=== PATIENT | female | born 1955 | race African-American/Black ===

== ENCOUNTER 2022-06-06 20:23 | Emergency (ER) | payer OTHER ==
[2022-06-06 20:42] VITALS: TEMP 98.9
[2022-06-06] MEDS ORDERED: SODIUM CHLORIDE 0.9% 1,000 ML IV STA (20:45)
[2022-06-06] MEDS ORDERED: KETOROLAC 15 MG/ML 1 ML VIAL IVP STA (20:45)
[2022-06-06] MEDS ORDERED: ONDANSETRON 4 MG/2 ML VIAL IVP STA (20:45)
[2022-06-06] MEDS ORDERED: PROMETHAZINE 25 MG TAB PO STA (20:53)
[2022-06-06] MEDS ORDERED: cloNIDine HCL 0.2 MG TAB PO STA (20:54)
[2022-06-06 21:23] LABS: Basophils % (A) 1 %; Eosinophils # (A) 0.1 k/uL (0-0.7); Eosinophils % (A) 1 %; HCT 49.3 % (34.0-46.0); HGB 16.4 gm/dL (11.4-16.0); Lymphocytes # (A) 1.4 k/uL (1.0-4.8); Lymphocytes % (A) 18 %; MCH 29.6 pg (25.0-35.0); MCHC 33.3 g/dL (31.0-37.0); MCV 88.7 fL (80.0-100.0); Mean Platelet Volume 8.1; Monocytes # (A) 0.3 k/uL (0-1.0); Monocytes % (A) 4 %; Neutrophils # (A) 5.6 k/uL (1.3-7.7); Neutrophils % (A) 75 %; Platelet Count 226 k/uL (150-450); RBC 5.56 m/uL (3.80-5.40); RDW 12.3 % (11.5-15.5); WBC 7.4 k/uL (3.8-10.6)
[2022-06-06 21:33] LABS: ALT 16 U/L (4-34); AST 23 U/L (14-36); African American GFR (CKD) >90 (>60 ml/min/1.73 sqM); Albumin 5.1 g/dL (3.5-5.0); Alkaline Phosphatase 89 U/L (38-126); Anion Gap 17 mmol/L; Blood Urea Nitrogen 12 mg/dL (7-17); Calcium 9.8 mg/dL (8.4-10.2); Carbon Dioxide 25 mmol/L (22-30); Chloride 99 mmol/L (98-107); Glucose 156 mg/dL (74-99); Lipase 185 U/L (23-300); Non-African American GFR(CKD) >90 (>60 ml/min/1.73 sqM); Potassium 4.2 mmol/L (3.5-5.1); Sodium 141 mmol/L (137-145); Total Bilirubin 0.7 mg/dL (0.2-1.3); Total Protein 8.4 g/dL (6.3-8.2)
[2022-06-06] MEDS ORDERED: HYDROmorphone 0.5 MG/0.5 ML SYRINGE IVP STA (22:17)
--- NOTE | 2022-06-06 22:22 | ED ---
Abdominal Pain HPI - General Source: patient Mode of arrival: EMS Limitations: no limitations <Valerie Mendoza - Last Filed: 06/07/22 00:22> <Vickey Arciniega - Last Filed: 06/07/22 01:52> - General Chief Complaint: Abdominal Pain Stated Complaint: Abdominal Pain Time Seen by Provider: 06/06/22 20:27 - History of Present Illness Initial Comments: Patient is a 66-year-old female with a past medical history of hypertension and type 2 diabetes mellitus who presents from [facility] for withdrawal of heroin and crack cocaine. Last dose was 2 days ago. Patient reporting generalized abdominal pain, nausea, vomiting. Denies fever, chills, burning with urination. Patient was found to have elevated blood pressure at [facility], systolic in the low 200s. Patient states she took her blood pressure medications today. Denies alcohol use. (Valerie Mendoza) - Related Data Home Medications Medication Instructions Recorded Confirmed Albuterol Sulfate [Proair Hfa] 2 puff INHALATION RT-QID PRN 06/06/22 06/06/22 Insulin Glargine,Hum.rec.anlog 40 units SQ DAILY 06/06/22 06/06/22 [Lantus Solostar Pen] Simvastatin [Zocor] 20 mg PO DIRECTED 06/06/22 06/06/22 amLODIPine [Norvasc] 5 mg PO DIRECTED 06/06/22 06/06/22 carvediloL [Coreg] 6.25 mg PO DIRECTED 06/06/22 06/06/22 lisinopriL [Prinivil] 20 mg PO DAILY 06/06/22 06/06/22 metFORMIN HCL 500 mg PO BID 06/06/22 06/06/22 Previous Rx's Medication Instructions Recorded Ibuprofen [Motrin] 800 mg PO Q6HR PRN #30 tab 06/07/22 Ondansetron Odt [Zofran Odt] 4 mg PO Q8HR PRN #10 tab 06/07/22 Allergies Allergy/AdvReac Type Severity Reaction Status Date / Time No Known Allergies Allergy Verified 06/06/22 22:17 Review of Systems ROS Other: All systems not noted in ROS Statement are negative. <Valerie Mendoza - Last Filed: 06/07/22 00:22> ROS Other: All systems not noted in ROS Statement are negative. <Vickey Arciniega - Last Filed: 06/07/22 01:52> ROS Statement: Those systems with pertinent positive or pertinent negative responses have been documented in the HPI. General Exam Limitations: no limitations General appearance: alert, in distress (Pain) Respiratory exam: Present: normal lung sounds bilaterally. Absent: respiratory distress, wheezes, rales, rhonchi, stridor Cardiovascular Exam: Present: regular rate, normal rhythm, normal heart sounds. Absent: systolic murmur, diastolic murmur, rubs, gallop, clicks GI/Abdominal exam: Present: soft, normal bowel sounds. Absent: distended, tenderness, guarding, rebound, rigid Extremities exam: Present: other (no tremors) Neurological exam: Present: alert, oriented X3, CN II-XII intact Psychiatric exam: Present: normal affect, normal mood Skin exam: Present: warm, dry, intact, normal color. Absent: rash <Valerie Mendoza - Last Filed: 06/07/22 00:22> General appearance: alert, in no apparent distress Head exam: Present: atraumatic, normocephalic, normal inspection Eye exam: Present: normal appearance, PERRL, EOMI. Absent: scleral icterus, conjunctival injection, periorbital swelling ENT exam: Present: normal exam, mucous membranes moist Neck exam: Present: normal inspection. Absent: tenderness, meningismus, lymphadenopathy Respiratory exam: Present: normal lung sounds bilaterally. Absent: respiratory distress, wheezes, rales, rhonchi, stridor Cardiovascular Exam: Present: regular rate, normal rhythm, normal heart sounds. Absent: systolic murmur, diastolic murmur, rubs, gallop, clicks GI/Abdominal exam: Present: soft, normal bowel sounds. Absent: distended, tenderness, guarding, rebound, rigid Extremities exam: Present: normal inspection, full ROM, normal capillary refill. Absent: tenderness, pedal edema, joint swelling, calf tenderness Back exam: Present: normal inspection Neurological exam: Present: alert, oriented X3, CN II-XII intact Psychiatric exam: Present: normal affect, normal mood Skin exam: Present: warm, dry, intact, normal color. Absent: rash <Vickey Arciniega - Last Filed: 06/07/22 01:52> Course <Vickey Arciniega - Last Filed: 06/07/22 01:52> Vital Signs 06/06/22 06/06/22 06/07/22 20:40 23:33 00:11 Temperature 98.9 F Pulse Rate 50 L 54 L 50 L Respiratory 10 L 12 12 Rate Blood Pressure 190/79 217/85 140/65 O2 Sat by Pulse 98 95 Oximetry - Reevaluation(s) Reevaluation #1: 06/07/22 01:51 Medical record is reviewed (Vickey Arciniega) Reevaluation #2: 06/07/22 01:51 Patient informed results and questions answered (Vickey Arciniega) Medical Decision Making - Lab Data Result diagrams: 06/06/22 20:50 06/06/22 20:50 <Valerie Mendoza - Last Filed: 06/07/22 00:22> - Lab Data Result diagrams: 06/06/22 20:50 06/06/22 20:50 <Vickey Arciniega - Last Filed: 06/07/22 01:52> - Medical Decision Making This is a 66-year-old female presenting with withdrawal symptoms. Patient does appear to be in pain. Hypertensive at 190/79. Pulse and respiratory rate stable. Afebrile. Laboratory studies obtained and are relatively unremarkable. Patient given Zof ran and Phenergan which controlled nausea. She was also given Toradol for pain with no relief. Clonidine given for high blood pressure with no response, likely due to pain. Patient was then treated with Dilaudid and hydralazine. On reevaluation patient seems to be a lot more comfortable. States her pain is improved. Blood pressure now 145/65. Patient will be discharged back to her facility with zofran and motrin 800. Return parameters discussed. Patient verbalizes understanding. Dr. Arciniega is my attending. (Valerie Mendoza) 66 female stable for discharge home (Vickey Arciniega) - Lab Data Lab Results 06/06/22 06/06/22 Range/Units 20:50 20:50 WBC 7.4 (3.8-10.6) k/uL RBC 5.56 H (3.80-5.40) m/uL Hgb 16.4 H (11.4-16.0) gm/dL Hct 49.3 H (34.0-46.0) % MCV 88.7 (80.0-100.0) fL MCH 29.6 (25.0-35.0) pg MCHC 33.3 (31.0-37.0) g/dL RDW 12.3 (11.5-15.5) % Plt Count 226 (150-450) k/uL MPV 8.1 Neutrophils % 75 % Lymphocytes % 18 % Monocytes % 4 % Eosinophils % 1 % Basophils % 1 % Neutrophils # 5.6 (1.3-7.7) k/uL Lymphocytes # 1.4 (1.0-4.8) k/uL Monocytes # 0.3 (0-1.0) k/uL Eosinophils # 0.1 (0-0.7) k/uL Basophils # 0.0 (0-0.2) k/uL Sodium 141 (137-145) mmol/L Potassium 4.2 (3.5-5.1) mmol/L Chloride 99 (98-107) mmol/L Carbon Dioxide 25 (22-30) mmol/L Anion Gap 17 mmol/L BUN 12 (7-17) mg/dL Creatinine 0.69 (0.52-1.04) mg/dL Est GFR (CKD-EPI)AfAm >90 (>60 ml/min/1.73 sqM) Est GFR (CKD-EPI)NonAf >90 (>60 ml/min/1.73 sqM) Glucose 156 H (74-99) mg/dL Calcium 9.8 (8.4-10.2) mg/dL Total Bilirubin 0.7 (0.2-1.3) mg/dL AST 23 (14-36) U/L ALT 16 (4-34) U/L Alkaline Phosphatase 89 (38-126) U/L Total Protein 8.4 H (6.3-8.2) g/dL Albumin 5.1 H (3.5-5.0) g/dL Lipase 185 (23-300) U/L Disposition Is patient prescribed a controlled substance at d/c from ED?: No <Valerie Mendoza - Last Filed: 06/07/22 00:22> Is patient prescribed a controlled substance at d/c from ED?: No Time of Disposition: 01:50 <Vickey Arciniega - Last Filed: 06/07/22 01:52> Clinical Impression: Withdrawal from opioids, Cocaine withdrawal, Abdominal pain, Nausea and vomiting Disposition: HOME SELF-CARE Condition: Good Instructions (If sedation given, give patient instructions): Polysubstance Abuse (ED), Opioid Withdrawal (ED) Additional Instructions: Take medication as directed. Return to the emergency department experience new, concerning, or worsening symptoms. Prescriptions: Ibuprofen [Motrin] 800 mg PO Q6HR PRN #30 tab PRN Reason: Pain Ondansetron Odt [Zofran Odt] 4 mg PO Q8HR PRN #10 tab PRN Reason: Nausea Referrals: None,Stated [Primary Care Provider] - 1-2 days
[2022-06-06 23:36] VITALS: RESP 12
[2022-06-06] MEDS ORDERED: hydrALAZINE HCL 20 MG/ML 1 ML VIAL IVP STA (23:38)
[2022-06-07 00:12] VITALS: BP 140/65; PULSE 50
[2022-06-07] MEDS ORDERED: HYDROmorphone 1 MG/ML 1 ML SYRINGE IVP STA (00:30)
[2022-06-07] MEDS ORDERED: LORazepam 2 MG/ML INJ IV STA (00:30)
[2022-06-07] MEDS ORDERED: PROCHLORPERAZINE INJ 10 MG/2 ML VIAL IVP STA (00:30)
== END 2022-06-07 02:20 | disposition home or self-care (01) ==
LOC: EC 20:23
DX: F11.23 Opioid dependence with withdrawal (principal); F14.23 Cocaine dependence with withdrawal; R10.84 Generalized abdominal pain; R11.2 Nausea with vomiting, unspecified; I10 Essential (primary) hypertension; E11.9 Type 2 diabetes mellitus without complications; Z79.4 Long term (current) use of insulin; Z79.899 Other long term (current) drug therapy
CPT/HCPCS: 36415; 80053; 83690; 85025; 99284; 96374; 96375 ×2; 96361; 96376; J2060; J0360; J0780; J2405; J1170 ×2; J1885